=== PATIENT | male | born 1965 | race African-American/Black ===

== ENCOUNTER 2017-10-09 09:43 | Emergency (ER) | payer OTHER ==
[~2017-10-09] VITALS: Ht 198.1 cm; Wt 99.8 kg
[~2017-10-09 09:43] MED LIST: TUSSIONEX PENN473 ML PO; VENTOLIN HFA 1818 GM INH; ZPAK PO
[2017-10-09 10:33] LABS: ABSOLUTE NEUTROPHILS 5.6 thou/uL (1.4-8.2); EOSINOPHILS 1.4 % (0.0-3.0); LYMPHOCYTES 30.8 % (24.0-44.0); MCH 26.3 pg (26.0-34.0); MCHC 32.4 g/dL (28.0-37.0); MCV 81.1 fL (80.0-100.0); MONOCYTES 7.9 % (1.0-8.0); PLATELET COUNT 248 thou/uL (150-400); POLYS 58.9 % (36.0-66.0); RBC 4.93 mil/uL (4.50-6.00); RDW 15.6 % (10.5-14.5); WBC 9.5 thou/uL (4.0-11.0)
[2017-10-09 10:41] LABS: CALCIUM 9.5 mg/dL (8.5-10.1)
[2017-10-09 10:47] LABS: ALBUMIN 3.8 g/dL (3.4-5.0); DIRECT BILIRUBIN 0.1 mg/dL (<0.1-0.3); TOTAL BILIRUBIN 0.6 mg/dL (<0.1-1.0); TOTAL PROTEIN 7.6 g/dL (6.4-8.2)
[2017-10-09 10:57] LABS: URINE BILIRUBIN NEGATIVE (Negative); URINE BLOOD NEGATIVE (Negative); URINE CLARITY CLEAR; URINE COLOR YELLOW; URINE GLUCOSE-RANDOM* TRACE (Negative); URINE KETONES TRACE (Negative); URINE LEUKOCYTES-REFLEX NEGATIVE (Negative); URINE NITRITE-REFLEX NEGATIVE (Negative); URINE PROTEIN (DIPSTICK) TRACE (Negative); URINE SPECIFIC GRAVITY >= 1.030 (1.005-1.035)
[2017-10-09] MEDS ORDERED: ULTRAM 50MG TAB50 MG PO (11:01)
[2017-10-09] MEDS ORDERED: MEDROLDOSEPACK PO (11:01)
[2017-10-09] MEDS ORDERED: MOBIC7.5 MG PO (11:01)
[2017-10-09 11:25] VITALS: BP 140/91
== END 2017-10-09 11:52 | disposition home or self-care (01) ==
LOC: ER 09:43
PROVIDERS: Emergency Medicine
DX: M54.41 Lumbago with sciatica, right side (principal); I10 Essential (primary) hypertension; M54.9 Dorsalgia, unspecified; G89.29 Other chronic pain; F17.210 Nicotine dependence, cigarettes, uncomplicated

== ENCOUNTER 2018-07-30 08:23 | Inpatient (IN) | payer OTHER ==
[2018-07-30] VITALS (7 sets, daily range): BP systolic 155–173; BP diastolic 80–104
[~2018-07-30] VITALS: Ht 198.1 cm; Wt 111.1 kg
--- NOTE | ~2018-07-30 | HC ---
[facility] [place] [address] CONSULTATION Name: LAZARA EASLEY V Room #: 422-P ADM IN M.R.#: [id number] Admission: 07/30/18 ������������������ Attend Phys: Norman Ramos MD Discharge: ������������������ Date of : 61 Report #: [id number] THIS REPORT FOR: //name// CC: [facility] physician/PCP Norman Ramos DATE OF SERVICE: 07/30/2018 CHIEF COMPLAINT: A 53-year-old -[place] male admitted through the Emergency Department for worsening right diabetic foot ulceration. He first noticed the wound roughly 2 months ago and has progressively worsened. It started a callus and now has developed a full-thickness ulceration with necrotic tissue. He cleans it 2-3 times a week with alcohol and hydrogen peroxide. He was recently placed on oral course of cephalexin. He denies fevers, chills, nausea, vomiting or malaise. He is on parenteral cefazolin. Foot radiographs negative for osteomyelitis or fracture. Arterial Doppler ultrasound shows triphasic inflow waveform maintained down to the ankle with no stenosis. LABORATORY DATA: WBC 9.9, RBC 4.65, hemoglobin 12.4, hematocrit 37.9, platelets 247. BUN 25, creatinine 1.3, glucose 147. Albumin 3.8. CRP 2.4. PHYSICAL EXAMINATION: VITAL SIGNS: Temperature 97.8, pulse 83, respirations 18, blood pressure 168/88. EXTREMITIES: There is a large keratotic ulceration of the right plantar second MTP, roughly 6 cm diameter. The callus is ulcerated and probes down to the second MTP joint. There is substantial malodor with no healthy tissue or granulation. The area was grossly infected, the second toe and dorsal aspect of the second MTP joint has a darker dusky color due to edema. The wound probes down along the base of the second MTP to both the central, medial and lateral aspects. There is no fluctuance or crepitation. I am unable to express any drainage. He has palpable dorsalis pedis and posterior tibial pulses bilaterally. He has rigid hammertoe deformities of the second through fourth toes bilaterally with mild hallux valgus. He has onychomycosis with no paronychia. He has +2 nonpitting edema to both legs. No popliteal adenopathy, negative Homans' and Warner sign of both legs. IMPRESSION: 1. Chronic ulceration with deep tissue infection to right plantar forefoot, possible septic arthritis/osteomyelitis. 2. Type 2 diabetes mellitus with peripheral neuropathy. PLAN: An MRI was ordered earlier today, but has not been taken. The patient requires surgical debridement, possible amputation of the distal second ray pending MRI results. I will keep him n.p.o. past midnight. I discussed the [address] [address] CONSULTATION Name: LAZARA EASLEY V Room #: 422-P [facility] IN M.R.#: [id number] Admission: 07/30/18 ������������������ Attend Phys: Norman Ramos MD Discharge: ������������������ Date of : 61 Report #: [id number] condition with the patient and he understands that he at least requires surgical debridement in the operating room, and possibly bone resection. ��������������������������������������������� ���������������������������������������� By: ��������������������������������������������� 1722 1322 Elder Cates DPM /nt
--- NOTE | ~2018-07-30 | HC ---
[facility] [place] [address] CONSULTATION Name: LAZARA EASLEY V Room #: 422-P [facility] IN M.R.#: [id number] Admission: 07/30/18 ������������������ Attend Phys: Norman Ramos MD Discharge: ������������������ Date of : 61 Report #: [id number] THIS REPORT FOR: //name// CC: [facility] physician/PCP Norman Ramos DATE OF SERVICE: 08/01/2018 CHIEF COMPLAINT: Postoperative day #1 for debridement, right plantar forefoot wound. There was no extension of the wound into the subcutaneous tissue layer, no signs of deep infection or osteomyelitis. He is on parenteral cefazolin and vancomycin with good tolerance. Wound cultures, surgical tissue cultures are pending. He has been afebrile, no new labs for review. He denies right foot pain, although he has advanced diabetic peripheral sensory neuropathy. PHYSICAL EXAMINATION: Wound goes down to the dermis with no active bleeding or drainage. There is a dried blood to his bandage, but no active bleeding. No exposed subcutaneous tissue layer. He can flex his digits. No signs of acute vascular embarrassment. No pallor, cyanosis. Decreased inflammation with no marti erythema or cellulitis. IMPRESSION: Status post debridement, right foot, with type 2 diabetes mellitus, distal sensory neuropathy. PLAN: The wound was cleansed and re-dressed with Xeroform, 4 x 4s, Kerlix and Coban. He is ambulating in a heel walker shoe. We will follow the patient tomorrow. ��������������������������������������������� ���������������������������������������� By: ��������������������������������������������� 1430 1207 Elder Cates, ALIYA /nt
[~2018-07-30 08:23] MED LIST changes: +MEDROLDOSEPACK PO; +MOBIC7.5 MG PO; +ULTRAM 50MG TAB50 MG PO
[2018-07-30] MEDS ORDERED: KEFLEX500 M1 PO (08:28)
[2018-07-30] MEDS ORDERED: NEURONTIN 300300 M1 PO (08:29)
[2018-07-30 09:14] LABS: ABSOLUTE NEUTROPHILS 6.4 thou/uL (1.4-8.2); BASOPHILS 0.8 % (0.0-2.0); EOSINOPHILS 1.7 % (0.0-3.0); HEMATOCRIT 37.9 % (42.0-52.0); HEMOGLOBIN 12.4 gm/dL (14.0-18.0); LYMPHOCYTES 25.8 % (24.0-44.0); MCH 26.7 pg (26.0-34.0); MCHC 32.7 g/dL (28.0-37.0); MCV 81.5 fL (80.0-100.0); MONOCYTES 7.1 % (1.0-8.0); PLATELET COUNT 247 thou/uL (150-400); POLYS 64.6 % (36.0-66.0); RBC 4.65 mil/uL (4.50-6.00); RDW 13.9 % (10.5-14.5); WBC 9.9 thou/uL (4.0-11.0)
[2018-07-30 09:33] LABS: CALCIUM 9.3 mg/dL (8.5-10.1); CREATININE 1.3 mg/dL (0.7-1.3)
[2018-07-30 13:28] LABS: TSH 0.774 uIU/mL (0.358-3.740)
--- NOTE | 2018-07-30 15:46 | NUR ---
Pt arrived to floor per cart from emergency room at 1230 in stbale condition. Admission hx,assessment and care plan completed.Pt ambulated in hallways with steady gait.Iv antibiotic given and well tolerated.No verbal c/o.Will continue to monitor.
--- NOTE | 2018-07-30 17:15 | NUR ---
PT ADMITTED RELATED TO DIABETIC FOOT WOUND. CM REVIEWED CHART AND SPOKE WITH CARE TEAM. CM MET WITH PT AT BEDSIDE THIS DAY. PT IS A&O X4. CM ROLE INTRODUCED. PT INDICATED HE LIVES IN A HOUSE WITH HIS MOTHER AND BROTHER. HE INDICATED THERE ARE 2 STEPS TO ENTER AND 12 STEPS INSIDE. 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 INDICATED NO DME OR HH HX. PT INDICATED NO PCP. PT IS SCHEDULED TO HAVE SURGERY TOMORROW. [facility] HAS BEEN CONTACED AND THEY WILL PROVIDE SOME [facility] NURSING VISITS FOR FOLLOW UP WOUND CARE. PT WAS PROVIDED A [facility] PACKET AND A PERSCRIPTION DISCOUNT CARD. PT WILL NEED TO BE SENT HOME WITH SOME SUPPLIES FOR INITIAL WOUND CARE. DR. KELLY WILL FOR FOR HOME HEALTH SERVICES. FACESHEET WAS ASLO FAXED TO [employer]. FAX ORDERS TO [facility] AT P: .
[2018-07-30 23:06] LABS: GLYCOHEMOGLOBIN (HGB A1C) 7.7 % (4.8-5.6)
--- NOTE | 2018-07-30 23:22 | NUR ---
PT WAS OBSERVED LYING ON HIS BED WATCHING TV AT THE START OF SHIFT.PT'S WOUND UNDER HIS R SECOND TOE CLEANED WITH WOUND CLEANSER AND COVERED WITH WET-DRY DRSG.WOUND PIC OBTAINED BEFORE WOUND CARE.URINAL BY BEDSIDE.PT ABLE TO MAKE HIS NEEDS KNOWN.CALL LIGHT WITHIN REACH.
[2018-07-31 04:16] LABS: PROTIME 10.5 Seconds (9.3-11.4)
[2018-07-31 04:28] LABS: CHOLESTEROL 139 mg/dL (<200); HDL CHOLESTEROL 90 mg/dL (>40); LDL CHOLESTEROL 35 mg/dL (<100); TC:HDL 1.5 Ratio (Not establshd); TRIGLYCERIDE 73 mg/dL (<150); VLDL 15 mg/dL (<40)
[2018-07-31 04:43] LABS: SERUM ASSESSMENT Clear
[2018-07-31 04:50] VITALS: BP 163/98
[2018-07-31 07:53] VITALS: BP 145/95
--- NOTE | 2018-07-31 11:09 | NUR ---
RECEIVED PT BACK FROM SURGERY. PT ADAMANT ON GETTING UP BY HIMSELF AND REMAINING UP AD RODOLFO. INSTRUCTED ABOUT HEEL WEIGHT BEARING ON RIGHT FOOT- PT DEMONSTRATED WELL. PT AMBULATING IN HALLWAY. WILL CONT. TO MONITOR.
--- NOTE | 2018-07-31 11:10 | NUR ---
WALKER PROVIDED FOR USE WHILE IN HOSPITAL.
[2018-07-31 16:00] VITALS: BP 148/91
[2018-07-31 20:00] VITALS: BP 152/92
--- NOTE | 2018-08-01 01:13 | NUR ---
PT WAS ADAMANT ON WALKING AROUND THE FLOOR ALONE,WAS REMINDED OF HIS HEEL WT BEARING LIMITATION,VOICED UNDERSTANDING.PT'S IV SITE WAS INFILTRATED WHILE VANC WAS INFUSING,ANOTHER IV STARTED ON HIS RFA,PT TOLERATED WELL.NO DRAINAGE NOTED ON THE DRSG ON HIS R FOOT.PT LOOKING FORWARD TO BE DISCHARGED TOMORROW. PT SLEEPING ON HIS BED AT THIS TIME.CALL LIGHT WITHIN REACH.
[2018-08-01 07:10] VITALS: BP 156/93
--- NOTE | 2018-08-01 16:28 | NUR ---
Pt in and out of room today independently.Assessment completed.vss but pt was angry and wanted to dc home today.Dr Carmona rounded on pt.Told pt that he has to be seen by Infectious dx doc and also wait for blood culture result prior to dc home.[facility] clinic called for sugical shoe and it was brought in. Will continue to monitor.
[2018-08-01 17:16] VITALS: BP 147/90
[2018-08-01 20:16] VITALS: BP 155/96
[2018-08-02] VITALS (7 sets, daily range): BP systolic 139–174; BP diastolic 69–106
--- NOTE | 2018-08-02 03:51 | NUR ---
PT'S IV ABX CHANGED BY DR MARKS.PER REPORT,PT REACTED TO THE LOADING DOSE OF ZOSYN TEN MINUTES AFTER IT WAS STARTED.PHYSICIAN NOTIFIED BY AM NURSE,MED CHANGED AND PT TOLERATED THE NEW MED HE WAS PUT ON.PT UP ADLIB IN HIS ROOM,BOOT ON WHILE PT IS UP AND AROUND IN THE UNIT,AMAG C/D/I.PT LOOKING FORWARD TO BE DC'D IN AM.CALL LIGHT WITHIN REACH.
--- NOTE | 2018-08-02 12:12 | NUR ---
FORMAL PT EVALUATION DEFERRED Pt HAS BEEN UP AMBULATING IN HALLWAYS INDEPENDENTLY WITH R POSTOP HEEL WEIGHTBEARING SHOE ON. Pt HAS BEEN DOWN TO CAFETERIA PER RN. SUPERVISION FOR FLIGHT OF STAIRS WITH BILATERAL HANDRAILS. Pt STEADY WITH ALL OOB MOBILITY AND DECLINES FURTHER NEED FOR THERAPY SERVICES. ACUTE PT TO SIGN OFF. ANTICIPATE Pt WILL BE SAFE TO D/C HOME UPON MEDICAL CLEARANCE.
--- NOTE | 2018-08-02 13:06 | HC ---
[facility] [place] [address] CONSULTATION Name: LAZARA EASLEY V Room #: 422-P ADM IN M.R.#: [id number] Admission: 07/30/18 ������������������ Attend Phys: Norman Ramos MD Discharge: ������������������ Date of : 61 Report #: [id number] THIS REPORT FOR: //name// CC: [facility] physician/PCP Norman Ramos DATE OF SERVICE: 08/01/2018 INFECTIOUS DISEASE CONSULTATION REASON FOR CONSULTATION: I was asked to evaluate concerning diabetic foot infection. HISTORY OF PRESENT ILLNESS: The patient is a 53-year-old with history of diabetes, peripheral neuropathy, tobacco use who has had a nonhealing right plantar foot wound for several months. Over the last week, it has gotten worse with increased drainage and odor. He has been cleaning it with alcohol and peroxide. Did receive a course of cephalexin without improvement. Now presents for further evaluation. He was taken to surgery yesterday for debridement. I have not seen the operative report yet, but he did not have amputation. The MRI scan showed a soft tissue inflammatory change without abscess or definite osteomyelitis. There was some edema to the fourth metatarsal head, but no activity seen in the second metatarsal head. His white count had been normal. He has had a C-reactive protein at 2.4. He has had no prior surgeries to the foot. He has had no history of MRSA. He stays at home caring for his mother. ALLERGIES: None known. MEDICATIONS: As noted on his MAR including vancomycin and cefazolin, also on gabapentin. PAST MEDICAL HISTORY: Diabetes, hypertension, hyperlipidemia, chronic back pain, tobacco use, peripheral neuropathy. FAMILY HISTORY: Noncontributory. SOCIAL HISTORY: He is a smoker of cigarettes. No significant alcohol intake. REVIEW OF SYSTEMS: Ten-point review was negative other than what is described above. PHYSICAL EXAMINATION: VITAL SIGNS: Afebrile and hemodynamically stable. GENERAL: Alert and cooperative and pleasant. Appeared his stated age. HEENT: Eyes are without scleral icterus. Mouth without mucositis. NECK: Supple. [facility] [address] [place] [address] CONSULTATION Name: LAZARA EASLEY Mason Room #: 422-[facility] IN .R.#: [id number] Admission: 07/30/18 ������������������ Attend Phys: Norman Ramos MD Discharge: ������������������ Date of : 61 Report #: [id number] CHEST: Clear. HEART: Regular, without murmur. ABDOMEN: Soft and nontender. EXTREMITIES: Pulses were normal in the lower extremities. Right foot was in surgical wrap. Toes were warm with good capillary refill. Sensation was diminished to touch. He had full range of motion in his toes and his ankle. Wound was not evaluated due to being in his surgical dressing. There was no drainage to the dressing. NEUROLOGIC: Cranial nerves are intact. Strength in his upper and lower extremities was normal. LABORATORY STUDIES: Reviewed and including creatinine 1.3. Hemoglobin 12.4, white count 9.9. CRP 2.4. Cultures are pending from yesterday. Blood cultures are negative to date. MRI scan as noted above. Arterial studies, triphasic flow in both lower extremities. IMPRESSION: 1. A 53-year-old postoperative day #1. Debridement of his diabetic foot infection. There were no findings of osteomyelitis. Unsure if the second metatarsophalangeal joint is involved. We will need to wait on his operative note. 2. Peripheral neuropathy. 3. Tobacco use. RECOMMENDATION: We will continue IV antibiotics postop. He will need outpatient IV therapy until wound begins to improve. We will use Zosyn for broad antibiotic coverage and ease of use in the outpatient program. This will be empiric coverage while we await culture results, which may take up to a week to get back. The patient was very anxious in going home for he was understanding he would only be here for 24 hours. I will arrange PICC placement. Have put in orders for outpatient antibiotic therapy in order to assist in the patient's return home. He will need to follow up with Dr. Clinton next week for further recommendations. ��������������������������������������������� <ELECTRONICALLY SIGNED> ���������������������������������������� By: Elder Whitaker MD ��������������������������������������������� 08/02/18 1306 1704 1036 Elder Whitaker MD /nt
--- NOTE | 2018-08-02 14:12 | NUR ---
FAXED REFERRAL FOR IV ABX TO [facility]. SPOKE WITH MARINA AT [facility] AND SHE RECEIVED REFERRAL FOR KATIE HELP. SHE WILL GIVE REFERRAL TO THE DIRECTOR AND BRENDAN ALSO NOTIFIED. DCP TO FOLLOW.
--- NOTE | 2018-08-02 14:38 | NUR ---
WOUND CONSULT: PT. WAS SEEN TODAY BY DR. HANNA AND MYSELF. PT. WAS TAKEN TO THE OR BY DR. KELLY ON THURSDAY FOR SURGICAL DEBRIDEMENT OF A DIABETIC ULCER TO HIS RIGHT PLANTER FOOT. WOUND BED IS HEALTHY TISSUE TODAY AND FREE OF SIGNS OR SYMTPOMS OF INFECTION. RECOMMENDAITONS: WOUND CARE TO RIGHT FOOT: GENTLY CLEANSE WITH WOUND CLEANSER OR NORMAL SALINE, COVER WITH XEROFORM, THEN ABD, SECURE WITH KERLIX AND PEDRO, COMPLETE CARES DAILY AND PRN. PT. AND STAFF NURSE WERE INSTRUCTED ON PLAN OF CARE.
[2018-08-02] MEDS ORDERED: AMLODIPINE BESYL5 M1 PO (17:45)
[2018-08-02] MEDS ORDERED: METRONIDAZOLE500 M4 PO (17:45)
[2018-08-02] MEDS ORDERED: TRAMADOL 50 MG50 MG PO (17:45)
--- NOTE | 2018-08-02 18:20 | NUR ---
BRENDAN FROM [facility] HERE TO DO TEACHING EARLIER ON IV ABX. VOUCHED FOR $9.96 IN OUTPT PHARMACY FOR FLAGYL SCRIPT. PT SAYS HE HAS A RIDE HOME. [facility] NOTIF[facility] DC LATER TODAY AND NEED FOR 1ST DOSE OF IV ROCEPHIN AT HOME TOMORROW. PT HAS OTHER SCRIPTS FOR MEDS AND IF HE CANNOT AFFORD TO HAVE THEM FILLED HE WILL CALL ME TOMORROW. NURSING TO SEND HOME WITH A FEW DRESSINGS FOR HOME USE WELL.
--- NOTE | 2018-08-02 18:30 | NUR ---
PT ASSESSED AT START OF SHIFT. WOUND CARE IN AND CHANGED DSNG TO RT FOOT. ESTIMATING MANAGER HERE TO SEE PT AT THIS TIME AND WILL SEE PT IN F/U. ARRANGMENTS BEING MADE FOR DISCHARGE W/ HOME HEALTH. PICC LINE PLACED TO LT UPPER ARM AND FIRST DOSE OF ROCEPHIN GIVEN W/O INCIDENT. PT TO DC THIS EVENING.
--- NOTE | 2018-08-02 20:44 | NUR ---
WENT THROUGH DISCHARGE PAPERWORK WITH PATIENT. PT DISCHARGED.
[2018-08-03] MEDS ORDERED: ROCEPHIN 11 GM/1001 IV (10:54)
--- NOTE | 2018-08-04 09:21 | HC ---
[facility] [place] [address] CONSULTATION Name: LAZARA EASLEY V Room #: 422-P [facility] IN M.R.#: [id number] Admission: 07/30/18 ������������������ Attend Phys: Norman Ramos MD Discharge: 08/02/18 ������������������ Date of : 61 Report #: [id number] THIS REPORT FOR: //name// CC: [facility] physician/PCP Norman Ramos DATE OF SERVICE: 08/02/2018 CHIEF COMPLAINT: Ulceration on the plantar aspect of the right foot. HISTORY OF PRESENT ILLNESS: This is a 53-year-old male patient with history of diabetes and peripheral neuropathy with large ulceration on the plantar aspect of his foot. He was admitted to the hospital and started on antibiotic therapy. He was seen by Podiatry and taken to the operating room for debridement. No bony or tendinous involvement was noted. We have been asked to see him for ongoing wound care. The patient denies any pain associated with this, states that this has been going on for some time. He notes significant neuropathy, therefore not causing him any pain. PAST MEDICAL HISTORY: Positive for diabetes mellitus, hypertension, hyperlipidemia, tobacco abuse, peripheral neuropathy. ALLERGIES: None. MEDICATIONS: Include tramadol, meloxicam, gabapentin and Keflex. SOCIAL HISTORY: The patient smokes cigarettes, has a 25-jysa-dpxh history. No significant alcohol use, no drug use. FAMILY HISTORY: Noncontributory. REVIEW OF SYSTEMS: CONSTITUTIONAL: The patient denies fever, chills or weight loss. NEUROLOGICAL: The patient denies focal weakness. Does have numbness and neuropathic pain in his feet. ENT: The patient denies earache, nasal drainage or sore throat. CARDIOVASCULAR: The patient denies chest pain, palpitations, or diaphoresis. PULMONARY: The patient denies cough or shortness of breath. GASTROINTESTINAL: The patient denies nausea, vomiting, diarrhea, or abdominal pain. ORTHOPEDIC: The patient is aware of the ulceration on his right foot as well as callus on the left. Other systems in a 14-point review of systems are negative. PHYSICAL EXAMINATION: [facility] [address] [place] [address] CONSULTATION Name: LAZARA EASLEY Mason Room #: 422-P [facility] IN M.R.#: [id number] Admission: 07/30/18 ������������������ Attend Phys: Norman Ramos MD Discharge: 08/02/18 ������������������ Date of : 61 Report #: [id number] VITAL SIGNS: At this time include temperature 97.4, pulse 74, respiratory rate of 18, blood pressure 156/99. GENERAL: This is a well-developed male patient, who appears to be in no distress. HEENT: Head is normocephalic. Nose and throat are clear. NECK: Supple. LUNGS: Clear. HEART: Regular. ABDOMEN: Soft. Bowel sounds present. EXTREMITIES: Lower extremities exam demonstrate palpable distal pulses. He has an ulceration on the plantar aspect of his right foot. It is status post debridement. It is clean and granulating and there is no exposure of tendon or bone at this time that is not overtly infected. CLINICAL IMPRESSION: Diabetic neuropathic ulceration of the right foot. RECOMMENDATIONS: At this point in time, we will recommend topical antibiotic ointment, Xeroform gauze followed by dry gauze secondary dressing. Recommended postop shoe or half shoe for offloading. Would be happy to follow him in the wound clinic in the next 10-14 days for followup. I appreciate being asked to see him in consultation. ��������������������������������������������� <ELECTRONICALLY SIGNED> ���������������������������������������� By: John Smith MD ��������������������������������������������� 08/04/18 0921 1325 0436 John Smith MD /nt
--- NOTE | 2018-08-06 11:08 | PATH ---
[facility] [address] [place] [address] PATHOLOGY RPT PROCEDURE Name: NBA EASLEY V Room #: 422-P [facility] IN M.R.#: [id number] ������������������ Admission: 07/30/18 ������������������ Date of : 61 Discharge: 08/02/18 Report #: [id number] Path Case #: [id number] [facility] Accession Number: [id number] . 01 Material submitted: . RIGHT FOOT WOUND . 01 Clinical history: . Right foot wound . 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 (IUV/db; 08/04/2018) LBQ/08/04/2018 . 02 Electronically signed: . Lesly Wynne MD, Pathologist NPI- [id number] . 01 Gross description: . The specimen is received in formalin, labeled "Nba Reina, right foot wound". Received is a segment of pale wilson, flaky to light wilson, verrucoid to crusted-appearing skin measuring 6.3 x 4.7 x 0.6 cm in greatest dimensions. The specimen is submitted representatively in cassette A1. (CAA; 08/03/2018) QAC/QAC . 02 Pathologist provided ICD-10: I96 . 02 CPT . 447549 Specimen Comment: A courtesy copy of this report has been sent to Specimen Comment: [phone], . Specimen Comment: Report sent to / DR HEATH Specimen Comment: A duplicate report has been generated due to demographic updates. Performed at: [address], [place] [id number] MD Sang Souza MD Phone: [phone] Performed at: [address] [id number] MD Lesly Wynne MD Phone: [phone]
== END 2018-08-02 20:46 | disposition home health service (06) | DRG 624 ==
LOC: ER 08:23 → 4E 11:09 → EROBS 11:09 → 4E 12:45
PROVIDERS: Emergency Medicine; Nurse Practitioner; ADMIT Internal Medicine
PROC: 0JBQ0ZZ Excision of Right Foot Subcutaneous Tissue and Fascia, Open Approach (ICD-10-PCS; principal; 2018-07-30)
PROC: 02HV33Z Insertion of Infusion Device into Superior Vena Cava, Percutaneous Approach (ICD-10-PCS; 2018-08-02)
DX: E11.621 Type 2 diabetes mellitus with foot ulcer (principal); I10 Essential (primary) hypertension; E11.42 Type 2 diabetes mellitus with diabetic polyneuropathy; L97.519 Non-pressure chronic ulcer of other part of right foot with unspecified severity; M20.41 Other hammer toe(s) (acquired), right foot; M20.11 Hallux valgus (acquired), right foot; B35.1 Tinea unguium; E78.5 Hyperlipidemia, unspecified; E11.65 Type 2 diabetes mellitus with hyperglycemia; F17.210 Nicotine dependence, cigarettes, uncomplicated; Z79.899 Other long term (current) drug therapy; Z71.6 Tobacco abuse counseling
CPT/HCPCS: 10084; 27000; 50101; 50386; 57091; 62110; 62900; 70005